=== PATIENT | female | born 1980 | race African-American/Black ===

== ENCOUNTER 2018-02-07 07:38 | Day surgery (SDC) | payer BC, OTHER ==
[2018-02-07] MEDS ORDERED: PROPOFOL INJ 200 MG/20 ML VIAL IV ONE (09:05)
[2018-02-07] MEDS ORDERED: DIPHENHYDRAMINE HCL 50 MG/ML VIAL IV PRN (09:54)
--- NOTE | 2018-02-07 10:08 | Operative Report ---
Operative Report DATE OF SURGERY: 02/07/18 Operative Report: The risks, benefits and alternatives of the procedure are explained to the patient in detail and informed consent is obtained. Patient is placed in a left , lateral decubital position. Timeout was called. Propofol medication is administered. Rectal examination is done which did not reveal any masses, tears or fissures. An Olympus videoscope was introduced into the patient's rectum. It is carefully advanced all the way to the cecum. Cecum was identified by the usual anatomical landmarks including the ileocecal valve as well as the appendiceal office. Photodocumentation is obtained. Prep is good. Intubation of the terminal ileum is done. The scope was then sequentially pulled back via the various segments of the colon including the ascending colon , hepatic flexure, transverse colon, splenic flexure, descending colon and finally to the rectosigmoid portions of the colon. Retroflexion maneuvers performed. The risks benefits and alternatives of the procedure explained to the patient in detail and informed consent is obtained.A GIF Olympus video scope was inserted into the patient's mouth and hypopharynx, the esophagus is identified intubated and insufflated, the scope was then advanced through the esophagus stomach and duodenum, retroflexion maneuver is done the esophagus stomach and first and second portions of the duodenum examined PREOPERATIVE DIAGNOSIS: Epigastric pain, change of bowel habits POSTOPERATIVE DIAGNOSIS: Mild proctitis. Normal colonoscopy. Random biopsies taken in the terminal ileum rule out Crohn's disease. Gastritis status post biopsy rule out Helicobacter pylori. Esophagitis OPERATION: Colonoscopy with biopsy. EGD with biopsy SURGEON: NIMA BONILLA ANESTHESIA: LMAC TISSUE REMOVED OR ALTERED: As noted above. COMPLICATIONS: None. ESTIMATED BLOOD LOSS: None. INTRAOPERATIVE FINDINGS: As noted above. PROCEDURE: Patient tolerated the procedure well. No immediate postprocedure complications are noted. Patient discharged in good condition. Discharge date 02/07/2018. Discharge diet: Regular. Discharge activity: Regular. 2-3-week follow-up to discuss findings. Patient is instructed call the office or proceed to the emergency room should there be any further problems or questions. Wait on the pathology.
[2018-02-07 10:41] VITALS: BP 116/66
== END 2018-02-07 10:48 | disposition home or self-care (01) ==
LOC: OROUT 07:38
PROVIDERS: ATTEND Internal Medicine Gastroenterology
DX: K62.89 Other specified diseases of anus and rectum (principal); K21.0 Gastro-esophageal reflux disease with esophagitis; K29.70 Gastritis, unspecified, without bleeding; J45.909 Unspecified asthma, uncomplicated; D55.0 Anemia due to glucose-6-phosphate dehydrogenase [G6PD] deficiency; Z79.899 Other long term (current) drug therapy; Z79.51 Long term (current) use of inhaled steroids; Z88.5 Allergy status to narcotic agent; Z91.040 Latex allergy status
CPT/HCPCS: 43239; 45380; 81025; 88305 ×2; J2704; 813